=== PATIENT | female | born 2000 | race Caucasian/White ===

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

== ENCOUNTER 2022-09-20 08:41 | Inpatient (IN) ==
[~2022-09-20 08:41] MED LIST: Sodium Citrate/Citric Acid LIQ 15 ML UDC PO ONE
[2022-09-20] MEDS ORDERED: ceFOXitin 2 GM IVPREMIX 2 GM/50 ML BAG IVPB ONE (09:00)
[2022-09-20] MEDS ORDERED: Buffered Lidocaine 1% SYRIN 1 ml ONE (09:08)
[2022-09-20 09:45] LABS: ABS Eosinophils 0.3 10^3/uL (0.0-0.5); ABS Lymphocytes 1.8 10^3/uL (1.0-4.8); ABS Monocytes 0.5 10^3/uL (0.0-0.9); ABS Neutrophils 6.3 10^3/uL (1.5-7.6); ABS Nucleated RBC 0.01 10^3/ul; Eosinophil % 3.2 %; Hematocrit 32.1 % (35-45); Hemoglobin 10.8 g/dL (11.5-14.3); Mean Corpuscular Hemoglobin 27.4 pg (27-33); Mean Corpuscular Hgb Conc 33.5 g/dL (31-36); Mean Corpuscular Volume 81.8 fL (80-97); Mean Platelet Volume 7.4 fL (7.5-11.2); Nucleated Red Blood Cells % 0.1 /100 WBC (0.0-0.4); Platelet Count 278 10^3/uL (150-450); Red Blood Count 3.93 10^6/uL (3.63-4.92); Red Cell Distribution Width 15.2 % (12-17); White Blood Count 8.9 10^3/uL (3.8-11.8)
[2022-09-20] MEDS ORDERED: Lactated Ringers 1000 ml BAG 1,000 ML IV SCH ×2 (09:53→13:00)
[2022-09-20] MEDS ORDERED: Sodium Citrate/Citric Acid LIQ 15 ML UDC ONE (09:54)
[2022-09-20 10:12] LABS: Urine Benzodiazepine Screen None Detected (None Detect); Urine Cannabinoids Screen None Detected (None Detect); Urine Opiates Screen None Detected (None Detect)
[2022-09-20] MEDS ORDERED: Morphine PF AMP (0.5MG/ML) 5 MG/10 ML AMP ONE (10:31)
[2022-09-20] MEDS ORDERED: fentaNYL 100 mcg/2 ml 50 MCG/ML VIAL ONE (10:31)
[2022-09-20] MEDS ORDERED: Phenylephrine 40 mcg/mL 10mL (400mcg) SYRINGE ONE (10:34)
[2022-09-20] MEDS ORDERED: Oxytocin 10 UNITS/ML 1 ML VIAL ONE (11:07)
[2022-09-20] MEDS ORDERED: Ondansetron 4 mg VIAL 2 MG/ML 2 ml VIAL ONE (11:07)
[2022-09-20 11:46] LABS: Urine Appearance Clear; Urine Bilirubin Negative (Negative); Urine Blood Negative (Negative); Urine Color Yellow; Urine Glucose Negative (Negative); Urine Ketones Negative (Negative); Urine Nitrite Negative (Negative); Urine Protein Negative (Negative); Urine Specific Gravity 1.011 (1.002-1.030); Urine Urobilinogen Negative (Negative)
[2022-09-20] MEDS ORDERED: fentaNYL 100 mcg/2 ml 50 MCG/ML VIAL IV PRN (11:46)
[2022-09-20] MEDS ORDERED: Naloxone 0.4 mg VIAL 0.4 mg/ml 1 ml VIAL IV PRN (11:46)
[2022-09-20] MEDS ORDERED: Ondansetron 4 mg VIAL 2 MG/ML 2 ml VIAL IV PRN (11:48)
[2022-09-20] MEDS ORDERED: Acetaminophen IV 1 GM/100ML 1,000 MG/100 ML BAG IV PRN (11:48)
[2022-09-20] MEDS ORDERED: Naloxone 0.4 mg VIAL 0.4 mg/ml 1 ml VIAL IV PUSH PRN (11:48)
[2022-09-20] MEDS ORDERED: Metoclopramide 5 MG/ML VIAL (10 mg) IV PRN (11:48)
[2022-09-20] MEDS ORDERED: Glycerin ADULT 2.4 gm SUPP PR PRN (12:30)
[2022-09-20] MEDS ORDERED: Dibucaine 1% OINT 28.35 GM TUBE PR PRN (12:30)
[2022-09-20] MEDS ORDERED: Oxytocin in LR 20,000 MILLI.UNIT/1,000 ML BAG IV SCH (12:30)
[2022-09-20] MEDS ORDERED: Witch Hazel PAD JAR TOPICAL PRN (12:30)
[2022-09-21] MEDS ORDERED: Buffered Lidocaine 1% SYRIN 1 ml INTRADERM ONE (06:00)
[2022-09-21] MEDS ORDERED: Lactated Ringers 1000 ml BAG 1,000 ML IV ONE (06:00)
[2022-09-21] MEDS ORDERED: Sodium Citrate/Citric Acid LIQ 15 ML UDC PO ONE (06:00)
[2022-09-21 06:49] LABS: ABS Eosinophils 0.1 10^3/uL (0.0-0.5); ABS Lymphocytes 1.2 10^3/uL (1.0-4.8); ABS Monocytes 0.4 10^3/uL (0.0-0.9); ABS Neutrophils 8.7 10^3/uL (1.5-7.6); Hematocrit 27.5 % (35-45); Hemoglobin 9.2 g/dL (11.5-14.3); Lymphocyte % 11.6 %; Mean Corpuscular Hemoglobin 27.7 pg (27-33); Mean Corpuscular Hgb Conc 33.4 g/dL (31-36); Mean Corpuscular Volume 83.1 fL (80-97); Mean Platelet Volume 7.5 fL (7.5-11.2); Platelet Count 240 10^3/uL (150-450); Red Blood Count 3.31 10^6/uL (3.63-4.92); White Blood Count 10.5 10^3/uL (3.8-11.8)
[2022-09-21] MEDS ORDERED: Lactated Ringers 1000 ml BAG 1,000 ML IV SCH (07:00)
[2022-09-22 09:41] VITALS: BP 122/67
[2022-09-22] MEDS ORDERED: Varicella Virus Vaccine Live 0.5 ML VIAL SUBCUT ONE (12:26)
== END 2022-09-22 18:15 | disposition home or self-care (01) | DRG 540 ==
LOC: MCHOB 08:41
PROVIDERS: ADMIT Obstetrics & Gynecology; ATTEND Obstetrics & Gynecology